=== PATIENT | male | born 1965 | race Caucasian/White ===

== ENCOUNTER 2017-06-02 10:50 | Observation (INO) | payer BC ==
[2017-06-02] MEDS ORDERED: HUMULIN R 100 UNIT/ML VIAL SC ONE (10:51)
[2017-06-02] MEDS ORDERED: 0.9 % SODIUM CHLORIDE 1,000 ML BAG IV ONE (11:25)
[2017-06-02 11:36] LABS: BASO % 0.5 % (0-6); EOS % 1.5 % (0-6); GRAN % 67.6 % (47-80); HEMATOCRIT 48.5 % (42.0-52.0); HEMOGLOBIN 16.8 gm/dl (14.0-18.0); LYMPH % 24.9 % (16-45); MEAN CORPUSCULAR HEMOGLOBIN 29.8 pg (27-33); MEAN CORPUSCULAR HGB CONC 34.6 g/dl (32-36); MEAN PLATELET VOLUME 12.5 fl (7.4-10.4); MONO % 5.5 % (0-9); PLATELET COUNT 241 K/uL (130-400); RED BLOOD COUNT 5.64 M/uL (4.40-5.70); RED CELL DISTRIBUTION WIDTH 13.4 % (11.5-14.5)
[2017-06-02 11:45] LABS: BLOOD UREA NITROGEN 20 mg/dL (6-20); CREATININE 0.8 mg/dL (0.7-1.2); EST GLOMERULAR FILTRATION RATE > 60 mL/min
[2017-06-02 11:48] LABS: GLUCOSE,RANDOM 432 mg/dL (74-109)
[2017-06-02 11:50] LABS: ACETONE,SERUM NEGATIVE (NEGATIVE)
[2017-06-02] MEDS ORDERED: HUMULIN R 100 UNIT/ML VIAL SQ ONE (12:18)
[2017-06-02] MEDS ORDERED: PROMETHAZINE HCL 12.5 MG in 0.9 % SODIUM CHLORIDE 100ML 100 ML IVPB ONE (12:29)
[2017-06-02 13:00] LABS: URINE APPEARANCE CLEAR; URINE BILIRUBIN NEGATIVE (NEGATIVE); URINE BLOOD NEGATIVE (NEGATIVE); URINE COLOR YELLOW; URINE KETONE 15 mg/dL (NEGATIVE); URINE LEUKOCYTE ESTERASE NEGATIVE (NEGATIVE); URINE NITRITE NEGATIVE (NEGATIVE); URINE PROTEIN NEGATIVE (NEGATIVE); URINE UROBILINOGEN 0.2 E.U./dL (0.20 - 1.00)
[2017-06-02 13:04] LABS: URINE GLUCOSE (UA) >=1000 mg/dL (NEGATIVE)
[2017-06-02] MEDS: 0.9 % SODIUM CHLORIDE 1000ML 1,000 ML IV PRN ×3 (14:01→22:31)
--- NOTE | 2017-06-02 14:10 | Emergency Department Record ---
History of Present Illness - General Chief complaint: Hypergylcemia Stated complaint: BLOOD SUGAR HIGH Time Seen by Provider: 06/02/17 11:24 Source: Patient Mode of Arrival: Ambulatory Limitations: No limitations - History of Present Illness Initial comments: pt has has polydipsia,polyurea and general weakness for last few weeks. he went to urgent care today and he was sent here because he had a bs over 400 MD Complaint: Generalized weakness, Lack of energy Onset/Timin -: Month(s) Location: Generalized - [place] Coma Scale Eye Response: (4) Open spontaneously Motor Response: (6) Obeys commands Verbal Response: (5) Oriented [place] Total: 15 - Related Data Home Medications Medication Instructions Recorded Confirmed Last Taken No Home Med [NO HOME MEDS] 06/02/17 06/02/17 Unknown Allergies Allergy/AdvReac Type Severity Reaction Status Date / Time No Known Drug Allergies Allergy Verified 06/02/17 11:07 Travel Screening - Travel/Exposure Within Last 30 Days Have you traveled within the last 30 days?: No - Travel/Exposure Within Last Year Have you traveled outside the [place] in the last year?: No - Additonal Travel Details Have you been exposed to anyone with a communicable illness?: No Review of Systems Reviewed: No additional complaints except as noted below Constitutional: Reports: As per HPI, Weakness. Denies: Chills, Fever, Malaise, Night sweats, Weight change Eyes: Reports: As per HPI. Denies: Eye discharge, Eye pain, Photophobia, Vision change ENT: Reports: As per HPI. Denies: Congestion, Dental pain, Ear pain, Epistaxis , Hearing loss, Throat pain Respiratory: Reports: As per HPI. Denies: Cough, Dyspnea, Hemoptysis, Stridor, Wheezes Cardiovascular: Reports: As per HPI. Denies: Arrhythmia, Chest pain, Dyspnea on exertion, Edema, Murmurs, Orthopnea, Palpitations, Paroxysmal nocturnal dyspnea, Rheumatic Fever, Syncope Endocrine: Reports: As per HPI, Fatigue, Polydipsia, Polyuria. Denies: Heat or cold intolerance Gastrointestinal: Reports: As per HPI. Denies: Abdominal pain, Constipation, Diarrhea, Hematemesis, Hematochezia, Melena, Nausea, Vomiting Genitourinary: Reports: As per HPI. Denies: Dysuria, Frequency, Hematuria, Incontinence, Retention, Testicular pain, Testicular mass, Urgency Musculoskeletal: Reports: As per HPI. Denies: Arthralgia, Back pain, Gout, Joint swelling, Myalgia, Neck pain Skin: Reports: As per HPI. Denies: Bruising, Change in color, Change in hair/ nails, Lesions, Pruritus, Rash Neurological: Reports: As per HPI. Denies: Abnormal gait, Confusion, Headache, Numbness, Paresthesias, Seizure, Tingling, Tremors, Vertigo, Weakness Psychiatric: Reports: As per HPI. Denies: Anxiety, Auditory hallucinations, Depression, Homicidal thoughts, Suicidal thoughts, Visual hallucinations Hematological/Lymphatic: Reports: As per HPI. Denies: Anemia, Blood Clots, Easy bleeding, Easy bruising, Swollen glands Past Medical History - SOCIAL HISTORY Smoking Status: Current every day smoker Alcohol Use: None Drug Use Detail:: Marijuana - RESPIRATORY Hx Respiratory Disorders: No - CARDIOVASCULAR Hx Cardio Disorders: Yes Hx Vascular Disease: Yes (high cholesterol) - NEURO Hx Neuro Disorders: No - GI Hx GI Disorders: No - Hx Genitourinary Disorders: No - ENDOCRINE Hx Endocrine Disorders: No - MUSCULOSKELETAL Hx Musculoskeletal Disorders: No - PSYCH Hx Psych Problems: No - HEMATOLOGY/ONCOLOGY Hx Hematology/Oncology Disorders: No Family Medical History Any Significant Family History?: Yes Hx Diabetes: Father Hx Heart Disease: Father Physical Exam - General General Appearance: Alert, Oriented x3, Cooperative, Mild distress - Head Head exam: Normal inspection - Eye Eye exam: Normal appearance, PERRL, EOMI Pupils: Normal accommodation - ENT ENT exam: Normal exam, Mucous membranes dry, Normal external ear exam, Normal orophraynx Ear exam: Normal external inspection. negative: External canal tenderness Nasal Exam: Normal inspection. negative: Discharge, Sinus tenderness Mouth exam: Normal external inspection, Tongue normal Teeth exam: Normal inspection. negative: Dental caries Throat exam: Normal inspection. negative: Tonsillar erythema, Tonsillar exudate - Neck Neck exam: Normal inspection, Full ROM. negative: Tenderness - Respiratory Respiratory exam: Normal lung sounds bilaterally. negative: Respiratory distress - Cardiovascular Cardiovascular Exam: Regular rate, Normal rhythm, Normal heart sounds - GI/Abdominal GI/Abdominal exam: Soft, Normal bowel sounds. negative: Tenderness - Rectal Rectal exam: Deferred - exam: Deferred - Extremities Extremities exam: Normal inspection, Full ROM, Normal capillary refill. negative: Tenderness - Back Back exam: Reports: Normal inspection, Full ROM. Denies: Muscle spasm, Rash noted, Tenderness - Neurological Neurological exam: Alert, CN II-XII intact, Normal gait, Oriented X3 - Psychiatric Psychiatric exam: Normal affect, Normal mood - Skin Skin exam: Dry, Intact, Normal color, Warm Course Vital Signs 06/02/17 06/02/17 06/02/17 11:09 11:16 13:18 Temperature 98.1 F Pulse Rate 86 Pulse Rate [ 78 Pulse Ox Probe] Respiratory 18 16 Rate Blood Pressure 128/92 Blood Pressure 130/85 [Right Arm] Pulse Ox 98 95 - Reevaluation(s) Reevaluation #1: 06/02/17 14:03 pt feeling better Medical Decision Making - Lab Data Result diagrams: 06/02/17 11:24 06/02/17 11:17 Lab Results 06/02/17 06/02/17 06/02/17 Range/Units 11:17 11:17 11:24 WBC 13.0 H (4.2-12.2) K/uL RBC 5.64 (4.40-5.70) M/uL Hgb 16.8 (14.0-18.0) gm/dl Hct 48.5 (42.0-52.0) % MCV 86.0 (81-97) fl MCH 29.8 (27-33) pg MCHC 34.6 (32-36) g/dl RDW 13.4 (11.5-14.5) % Plt Count 241 (130-400) K/uL MPV 12.5 H (7.4-10.4) fl Gran % 67.6 (47-80) % Lymphocytes % 24.9 (16-45) % Monocytes % 5.5 (0-9) % Eosinophils % 1.5 (0-6) % Basophils % 0.5 (0-6) % VBG pH 7.37 (7.33-7.43) Sodium 131 L (136-145) mmol/L Potassium 4.2 (3.4-4.5) mmol/L Chloride 90 L (98-107) mmol/L Carbon Dioxide 25.0 (22-29) mmol/L Anion Gap 16.0 (7-16) BUN 20 (6-20) mg/dL Creatinine 0.8 (0.7-1.2) mg/dL Estimated GFR > 60 mL/min POC Glucose (70-110) mg/dL Random Glucose 432 H (74-109) mg/dL Lactic Acid 1.8 (0.5-2.2) mmol/L Calcium 10.3 H (8.6-10.0) mg/dL Urine Color Urine Appearance Urine pH (5.0-8.0) Ur Specific [place] (1.002-1.030) Urine Protein (NEGATIVE) Urine Glucose (UA) (NEGATIVE) Urine Ketones (NEGATIVE) Urine Blood (NEGATIVE) Urine Nitrite (NEGATIVE) Urine Bilirubin (NEGATIVE) Urine Urobilinogen (0.20 - 1.00) E.U./dL Ur Leukocyte Esterase (NEGATIVE) Acetone, Qual Negative (NEGATIVE) 06/02/17 06/02/17 Range/Units 12:50 13:36 WBC (4.2-12.2) K/uL RBC (4.40-5.70) M/uL Hgb (14.0-18.0) gm/dl Hct (42.0-52.0) % MCV (81-97) fl MCH (27-33) pg MCHC (32-36) g/dl RDW (11.5-14.5) % Plt Count (130-400) K/uL MPV (7.4-10.4) fl Gran % (47-80) % Lymphocytes % (16-45) % Monocytes % (0-9) % Eosinophils % (0-6) % Basophils % (0-6) % VBG pH (7.33-7.43) Sodium (136-145) mmol/L Potassium (3.4-4.5) mmol/L Chloride (98-107) mmol/L Carbon Dioxide (22-29) mmol/L Anion Gap (7-16) BUN (6-20) mg/dL Creatinine (0.7-1.2) mg/dL Estimated GFR mL/min POC Glucose 319 H (70-110) mg/dL Random Glucose (74-109) mg/dL Lactic Acid (0.5-2.2) mmol/L Calcium (8.6-10.0) mg/dL Urine Color Yellow Urine Appearance Clear Urine pH 5.5 (5.0-8.0) Ur Specific [place] 1.015 (1.002-1.030) Urine Protein Negative (NEGATIVE) Urine Glucose (UA) >=1000 mg/dl H (NEGATIVE) Urine Ketones 15 mg/dl H (NEGATIVE) Urine Blood Negative (NEGATIVE) Urine Nitrite Negative (NEGATIVE) Urine Bilirubin Negative (NEGATIVE) Urine Urobilinogen 0.2 (0.20 - 1.00) E.U./dL Ur Leukocyte Esterase Negative (NEGATIVE) Acetone, Qual (NEGATIVE) Disposition Disposition: Admit Clinical Impression: New onset type 2 diabetes mellitus Disposition: Still a Patient at [facility] Decision to Admit: Admit from ER Decision to Admit Date: 06/02/17 Decision to Admit Time: 14:04 Quality - Quality Measures Quality Measures: N/A - Blood Pressure Screening Does Patient Have Any of the Following: No Blood Pressure Classification: Hypertensive Reading Systolic Measurement: 128 Diastolic Measurement: 92 Screening for High Blood Pressure: < Pre-Hypertensive BP, F/U Documented > [ [id number]] Pre-Hypertensive Follow-up Interventions: Follow-up with rescreen every year.
[2017-06-02] MEDS ORDERED: HUMULIN R 100 UNIT/ML VIAL SQ PRN (14:56)
[2017-06-02] MEDS ORDERED: ACETAMINOPHEN 500 MG TABLET PO PRN (14:56)
--- NOTE | 2017-06-02 15:37 | History & Physical ---
History of Present Illness - Date of Service Date of Service for History & Physical: 06/03/17 - History of Present Illness Admitting Diagnosis: new onset diabetes History of Present Illness: Mr. Merida is a 51 year-old male who presented to the ED on after experiencing worsening polydipsia, polyuria, and generalized weakness for 2 weeks. He went to an urgent care first and was sent directly to ED due to elevated blood glucose. He has not been seen by a PCP in over 10 years. His only known history is hyperlipidemia and current every day smoker- 52.5 pk/ yrs. He states that he has not consumed alcohol in over 7 years and he does admit to occasional recreational marijuana use. He is single and he lives at home with his twin brother. When he arrived to the ED, his blood glucose was 432. His UA was positive for glucose >1000mg/dl and ketones 1.5mg/dl. He was treated with sliding scale sc novolog insulin. Based on his level of hyperglycemia and new diabetes diagnosis, pt. was admitted for management of hyperglycemia with insulin and laboratory monitoring. 06/02/17 1530: Pt. is sitting up in bed and eating. He states that he feels much better overall. He denies headache, vision change, recent weight loss. He states that over the last couple of weeks, he has felt like he was constantly thirsty. He states that he does not particularly pay attention to his diet and he does drink soda regularly. He also states that he is interested in quitting smoking. He states that his diagnosis of diabetes is a "wake up call" and that he is motivated to make lifestyle changes. He states that he has an appointment to establish care with a PCP, Dr. Zamarripa, in mid-Jun. Plan to continue sliding scale reg insulin, monitor accuchecks and vital signs, provide nutritional support and education. Travel Screening - Travel/Exposure Within Last 30 Days Have you traveled within the last 30 days?: No - Travel/Exposure Within Last Year Have you traveled outside the [place] in the last year?: No - Additonal Travel Details Have you been exposed to anyone with a communicable illness?: No - Travel Symptoms Symptom Screening: None Review of Systems Constitutional: Reports: As per HPI, Weakness. Denies: Chills, Fever, Malaise, Night sweats, Weight change Eyes: Reports: As per HPI. Denies: Eye discharge, Eye pain, Photophobia, Vision change ENT: Reports: As per HPI. Denies: Congestion, Dental pain, Ear pain, Epistaxis , Hearing loss, Throat pain Respiratory: Reports: As per HPI. Denies: Cough, Dyspnea, Hemoptysis, Stridor, Wheezes Cardiovascular: Reports: As per HPI. Denies: Arrhythmia, Chest pain, Dyspnea on exertion, Edema, Murmurs, Orthopnea, Palpitations, Paroxysmal nocturnal dyspnea, Rheumatic Fever, Syncope Endocrine: Reports: As per HPI, Fatigue, Polydipsia, Polyuria. Denies: Heat or cold intolerance Gastrointestinal: Reports: As per HPI. Denies: Abdominal pain, Constipation, Diarrhea, Hematemesis, Hematochezia, Melena, Nausea, Vomiting Genitourinary: Reports: As per HPI. Denies: Dysuria, Frequency, Hematuria, Incontinence, Retention, Testicular pain, Testicular mass, Urgency Musculoskeletal: Reports: As per HPI. Denies: Arthralgia, Back pain, Gout, Joint swelling, Myalgia, Neck pain Skin: Reports: As per HPI. Denies: Bruising, Change in color, Change in hair/ nails, Lesions, Pruritus, Rash Neurological: Reports: As per HPI. Denies: Abnormal gait, Confusion, Headache, Numbness, Paresthesias, Seizure, Tingling, Tremors, Vertigo, Weakness Psychiatric: Reports: As per HPI. Denies: Anxiety, Auditory hallucinations, Depression, Homicidal thoughts, Suicidal thoughts, Visual hallucinations Hematological/Lymphatic: Reports: As per HPI. Denies: Anemia, Blood Clots, Easy bleeding, Easy bruising, Swollen glands Past Medical History - SOCIAL HISTORY Smoking Status: Current every day smoker (1.5ppd) Alcohol Use: Rare Drug Use: Occasional Drug Use Detail:: Marijuana - RESPIRATORY Hx Respiratory Disorders: No - CARDIOVASCULAR Hx Cardio Disorders: Yes Hx Vascular Disease: Yes (high cholesterol) - NEURO Hx Neuro Disorders: No - GI Hx GI Disorders: No - Hx Genitourinary Disorders: No - ENDOCRINE Hx Endocrine Disorders: Yes Hx Diabetes: Yes (new onset today) - MUSCULOSKELETAL Hx Musculoskeletal Disorders: No - PSYCH Hx Psych Problems: No - HEMATOLOGY/ONCOLOGY Hx Hematology/Oncology Disorders: No Family Medical History Any Significant Family History?: Yes Hx Diabetes: Father Hx Heart Disease: Father H&P Meds/Allergies - Allergies Allergies: Allergies Allergy/AdvReac Type Severity Reaction Status Date / Time No Known Drug Allergies Allergy Verified 06/02/17 11:07 - Home Medications Home Medications Medication Instructions Recorded Confirmed Last Taken No Home Med [NO HOME MEDS] 06/02/17 06/02/17 Unknown - Active Medications Active Medications: Current Medications Acetaminophen (Tylenol 500mg Tab) 1,000 mg PO Q6H PRN PRN Reason: PAIN/TEMP Sodium Chloride () 1,000 mls @ 200 mls/hr IV .Q5H PRN PRN Reason: LARGE VOLUME IV Last Admin: 06/02/17 14:01 Dose: 200 mls/hr Insulin Human Regular (Humulin R) 1 unit SQ Q4H PRN PRN Reason: Hyperglycemica Physical Exam - General General Appearance: Alert, Oriented x3, Cooperative Limitations: No limitations - Head Head exam: Normal inspection - Eye Eye exam: Normal appearance, PERRL, EOMI Pupils: Normal accommodation - ENT ENT exam: Normal exam, Mucous membranes dry, Normal external ear exam, Normal orophraynx Ear exam: Normal external inspection. negative: External canal tenderness Nasal Exam: Normal inspection. negative: Discharge, Sinus tenderness Mouth exam: Normal external inspection, Tongue normal Teeth exam: Normal inspection. negative: Dental caries Throat exam: Normal inspection. negative: Tonsillar erythema, Tonsillar exudate - Neck Neck exam: Normal inspection, Full ROM. negative: Tenderness - Respiratory Respiratory exam: Normal lung sounds bilaterally. negative: Respiratory distress - Cardiovascular Cardiovascular Exam: Regular rate, Normal rhythm, Normal heart sounds - GI/Abdominal GI/Abdominal exam: Soft, Normal bowel sounds. negative: Tenderness - Rectal Rectal exam: Deferred - exam: Deferred - Extremities Extremities exam: Normal inspection, Full ROM, Normal capillary refill. negative: Tenderness - Back Back exam: Reports: Normal inspection, Full ROM. Denies: Muscle spasm, Rash noted, Tenderness - Neurological Neurological exam: Alert, CN II-XII intact, Normal gait, Oriented X3 - Psychiatric Psychiatric exam: Normal affect, Normal mood - Skin Skin exam: Dry, Intact, Normal color, Warm Results - Labs Result Diagrams: 06/02/17 11:24 06/02/17 11:17 VTE H&P Assessment - Risk for VTE Risk for VTE: No Risk Level: Very Low Risk Assessment Date: 06/02/17 (Pt's mobility not impaired) Risk Assessment Time: 16:00 VTE Orders Placed or Will Be Placed: No VTE Reason for No Prophylaxis: Not Indicated (Pt's mobility not impaired) Plan - Inpatient Certification Inpatient Certification: Admit to inpatient care: Based on my medical assessment, after consideration of patient's risk factors (age, co-morbidities and patient presenting symptoms and acuity), I expect that this patient will remain in the hospital greater than or equal to two midnights and that the services needed warrant inpatient care because: Patient Risk Factors: [] Estimated length of stay: [] The patient may reasonably be expected to be discharged or transferred to a hospital within 96 hours after admission to [facility]. Services needed: [sliding scale insulin, consult dietary, diabetes education, laboratory monitoring] Post hospital care (if known): [] I certify that my determination is in accordance with my understanding of Medicare requirements for reasonable and necessary inpatient services. 06/02/17 15:34 - Detailed Diagnosis and Plan (1) New onset type 2 diabetes mellitus Current Visit: Yes Status: Acute Base Code: E11.9 - TYPE 2 DIABETES MELLITUS WITHOUT COMPLICATIONS Comment: 06/02/17: Pt arrived to ED with blood glucose of 432 and urine positive for glucose and ketones. Vital signs stable. Plan to continue to monitor accucheck and sliding scale insulin QID ac/hs. Initiate metformin 500mg bid with meals. Labs ordered for 06/03- cbc, cmp, microalbumin, a1c, and lipid profile. Will consider initiating RANCHO for renal protection and statin based on vital signs and lab results. (2) Tobacco use disorder Current Visit: Yes Status: Acute Base Code: F17.200 - NICOTINE DEPENDENCE, UNSPECIFIED, UNCOMPLICATED Comment: 06/02/17: Pt. is current every day smoker - 1.5 packs per day for 35 years (52.5 pk/yrs). Pt. expresses interest in smoking cessation. Will consider nicotine patch based on pt. assessment on and if vs remain stable. (3) Full code status Current Visit: Yes Status: Acute Base Code: Z78.9 - OTHER SPECIFIED HEALTH STATUS Comment: 06/02/17: Pt. is full code status
[2017-06-02] MEDS: NOVOLOG FLEXPEN (INSULIN ASPART) 100 UNITS/ML SQ SCH ×2 (17:41→22:20)
[2017-06-02] MEDS: METFORMIN 500 MG TABLET PO SCH (17:42)
[2017-06-03 06:51] LABS: HEMATOCRIT 42.4 % (42.0-52.0); HEMOGLOBIN 14.6 gm/dl (14.0-18.0); MEAN CELL VOLUME 87.6 fl (81-97); MEAN CORPUSCULAR HEMOGLOBIN 30.2 pg (27-33); MEAN CORPUSCULAR HGB CONC 34.4 g/dl (32-36); MEAN PLATELET VOLUME 12.3 fl (7.4-10.4); PLATELET COUNT 203 K/uL (130-400); RED BLOOD COUNT 4.84 M/uL (4.40-5.70); RED CELL DISTRIBUTION WIDTH 13.5 % (11.5-14.5)
[2017-06-03 07:08] LABS: PLATELET ESTIMATE NORMAL (NORMAL)
[2017-06-03 07:12] LABS: ALB/GLOB RATIO 1.1 (1.1-1.8); ALBUMIN 3.5 g/dL (4.0-5.0); ALKALINE PHOSPHATASE 107 U/L (40-129); AST/SGOT 19 U/L (10.0-50.0); BLOOD UREA NITROGEN 10 mg/dL (6-20); CHOLESTEROL 353 mg/dL (<200); CREATININE 0.5 mg/dL (0.7-1.2); EST GLOMERULAR FILTRATION RATE > 60 mL/min; GLUCOSE,RANDOM 282 mg/dL (74-109); HDL CHOLESTEROL 15 mg/dL (40-60); TOTAL PROTEIN 6.6 g/dL (6.6-8.7)
[2017-06-03 07:25] LABS: ALT/SGPT < 5 U/L (<41)
[2017-06-03 07:37] LABS: TRIGLYCERIDES 2251 mg/dL (<150)
[2017-06-03] MEDS: METFORMIN 500 MG TABLET PO SCH (08:36)
[2017-06-03] MEDS: NOVOLOG FLEXPEN (INSULIN ASPART) 100 UNITS/ML SQ SCH ×2 (08:37→11:59)
[2017-06-03] MEDS: 0.9 % SODIUM CHLORIDE 1000ML 1,000 ML IV PRN (08:40)
[2017-06-03] MEDS ORDERED: PNEUM 23-VAL ADULT IM ONE (09:46)
[2017-06-03] MEDS ORDERED: LISINOPRIL 5 MG TABLET PO SCH (10:00)
[2017-06-03] MEDS ORDERED: ASPIRIN 81 MG TABEC PO SCH (10:00)
--- NOTE | 2017-06-03 15:45 | Discharge Summary ---
Providers Discharge Summary Date: 06/03/17 Date of admission: 06/02/17 14:44 Expected Date of Discharge: 06/03/17 Attending physician: Abdiaziz Lehman Primary care physician: Dr. Zamarripa- f/u on Wednesday 06/07 at 2pm Physical Exam - Vital Signs Vital Signs: Vital Signs - Last 24 Hrs Temp Pulse Resp BP Pulse Ox 06/03/17 06:00 97.4 F L 70 18 132/87 95 06/02/17 22:00 97.7 F 75 18 121/68 95 06/02/17 15:35 16 - General General Appearance: Alert, Oriented x3, Cooperative Limitations: No limitations - Head Head exam: Normal inspection - Eye Eye exam: Normal appearance, PERRL, EOMI Pupils: Normal accommodation - ENT ENT exam: Normal exam, Mucous membranes dry, Normal external ear exam, Normal orophraynx Ear exam: Normal external inspection. negative: External canal tenderness Nasal Exam: Normal inspection. negative: Discharge, Sinus tenderness Mouth exam: Normal external inspection, Tongue normal Teeth exam: Normal inspection. negative: Dental caries Throat exam: Normal inspection. negative: Tonsillar erythema, Tonsillar exudate - Neck Neck exam: Normal inspection, Full ROM. negative: Tenderness - Respiratory Respiratory exam: Normal lung sounds bilaterally. negative: Respiratory distress - Cardiovascular Cardiovascular Exam: Regular rate, Normal rhythm, Normal heart sounds - GI/Abdominal GI/Abdominal exam: Soft, Normal bowel sounds. negative: Tenderness - Rectal Rectal exam: Deferred - exam: Deferred - Extremities Extremities exam: Normal inspection, Full ROM, Normal capillary refill. negative: Tenderness - Back Back exam: Reports: Normal inspection, Full ROM. Denies: Muscle spasm, Rash noted, Tenderness - Neurological Neurological exam: Alert, CN II-XII intact, Normal gait, Oriented X3 - Psychiatric Psychiatric exam: Normal affect, Normal mood - Skin Skin exam: Dry, Intact, Normal color, Warm Hospitalization - Hospitalization Admission Diagnosis: new onset diabetes - Problem List/Discharge Diagnosis (1) New onset type 2 diabetes mellitus Status: Acute Base Code: E11.9 - TYPE 2 DIABETES MELLITUS WITHOUT COMPLICATIONS Comment: 06/03/17: Blood glucose 272. Vital signs remain stable. Plan to change sliding scale to long-acting insulin to prepare for discharge. Continue 500mg bid with meals. A1C 11.5, micoralbumin 44.2, total cholesterol 353, HDL 15, LDL 62, triglycerides 2251. Start lisinopril 5mg dialy , lipitor 20mg daily, aspirin 81mg daily. Provided education to pt. regarding lab results and new medications. (2) Hypertriglyceridemia Status: Acute Base Code: E78.1 - PURE HYPERGLYCERIDEMIA Comment: 06/03/17: Total cholesterol 353, LDL 62, HDL 15 and triglycerides 2251. Start lipitor 20mg daily. Education provided to pt. regarding purpose of medication, mechanism of action, and potential side effects. Also discussed lifestyle and nutritional modifications. (3) Tobacco use disorder Status: Acute Base Code: F17.200 - NICOTINE DEPENDENCE, UNSPECIFIED, UNCOMPLICATED Comment: 06/03/17: Pt. is current every day smoker- 1.5 packs per day for 35 years (52.5 pk/yrs). Pt. has not smoked since prior to admission and he states that he feels he is ready to quit smoking, denies need for nicotin patch at this time. (4) Full code status Status: Acute Base Code: Z78.9 - OTHER SPECIFIED HEALTH STATUS Comment: 06/03: Pt. remains full code status - Hospitalization Course Disposition: Home, Self-Care Hospital Course: Mr. Merida is a 51 year-old male who presented to the ED on after experiencing worsening polydipsia, polyuria, and generalized weakness for 2 weeks. He went to an urgent care first and was sent directly to ED due to elevated blood glucose. He has not been seen by a PCP in over 10 years. His only known history is hyperlipidemia and current every day smoker- 52.5 pk/ yrs. He states that he has not consumed alcohol in over 7 years and he does admit to occasional recreational marijuana use. He is single and he lives at home with his twin brother. When he arrived to the ED, his blood glucose was 432. His UA was positive for glucose >1000mg/dl and ketones 1.5mg/dl. He was treated with sliding scale sc novolog insulin. Based on his level of hyperglycemia and new diabetes diagnosis, pt. was admitted for management of hyperglycemia with insulin and laboratory monitoring. 06/02/17 1530: Pt. is sitting up in bed and eating. He states that he feels much better overall. He denies headache, vision change, recent weight loss. He states that over the last couple of weeks, he has felt like he was constantly thirsty. He states that he does not particularly pay attention to his diet and he does drink soda regularly. He also states that he is interested in quitting smoking. He states that his diagnosis of diabetes is a "wake up call" and that he is motivated to make lifestyle changes. He states that he has an appointment to establish care with a PCP, Dr. Zamarripa, in mid-Jun. Plan to continue sliding scale reg insulin, monitor accuchecks and vital signs, provide nutritional support and education. 06/03/17: Pt. is doing well today. He states that he is motivated and ready to make lifestyle modifications and get control of his diabetes. He has met with dietary for nutritional education. VS remain stable. Accuchecks remain above 270, requiring 8-10 units reg unsulin with sliding scale. Plan to discontinue sliding scale and implement long-acting levemir 10units every night in addition to metformin. Plan to discharge home today. Pt. will be instructed to continue metformin 500mg bid with meals, lipitor 20mg at night, aspirin 81mg daily, lisinopril 5mg daily, and levemir 10untis sc nightly. Pt. will be provided with prescription for glucometer, test strips, lancets, alcohol pads, and levemir insulin needles. Pt. instructed to check blood glucose every morning fasting and after at least one large meal daily- and to keep log of his results to present to pcp. Education provided to pt. regarding signs of hyper and hypo glycemia and when to seek medical treatment. Pt. has f/u with pcp on Wednesday 06/07. Abnormal Labs: Abnormal Lab Results 06/02/17 06/03/17 06/03/17 Range/Units 17:00 06:20 06:20 MPV 12.3 H (7.4-10.4) fl Sodium 134 L (136-145) mmol/L Creatinine 0.5 L (0.7-1.2) mg/dL POC Glucose 310 H (70-110) mg/dL Random Glucose 282 H (74-109) mg/dL Hemoglobin A1c (4.0-6.00) % Albumin 3.5 L (4.0-5.0) g/dL Triglycerides 2251 H (<150) mg/dL Cholesterol 353 H (<200) mg/dL HDL Cholesterol 15 L (40-60) mg/dL 06/03/17 06/03/17 Range/Units 06:20 11:30 MPV (7.4-10.4) fl Sodium (136-145) mmol/L Creatinine (0.7-1.2) mg/dL POC Glucose 272 H (70-110) mg/dL Random Glucose (74-109) mg/dL Hemoglobin A1c 11.50 H (4.0-6.00) % Albumin (4.0-5.0) g/dL Triglycerides (<150) mg/dL Cholesterol (<200) mg/dL HDL Cholesterol (40-60) mg/dL Condition at Discharge: (2) Stable VTE Discharge VTE Reason For No Overlap Therapy: Not Indicated Discharge Medications - Discharge Medications Prescriptions: Atorvastatin Calcium 20 mg PO QHS 30 Days #30 tab Insulin Detemir [Levemir Flextouch] 10 unit SQ QHS 30 Days #1 syringe Lisinopril [Zestril] 5 mg PO DAILY 30 Days #30 tablet Metformin HCl [Glucophage Ir] 500 mg PO BIDWM 30 Days #60 tablet Home Medications: Ambulatory Orders Aspirin Enteric-Coated [Ecotrin (EC)] 81 mg PO DAILY tabec 06/03/17 [Last Taken Unknown] Atorvastatin Calcium 20 mg PO QHS 30 Days #30 tab 06/03/17 [Last Taken Unknown] Insulin Detemir [Levemir Flextouch] 10 unit SQ QHS 30 Days #1 syringe 06/03/17 [ Last Taken Unknown] Lisinopril [Zestril] 5 mg PO DAILY 30 Days #30 tablet 06/03/17 [Last Taken Unknown] Metformin HCl [Glucophage Ir] 500 mg PO BIDWM 30 Days #60 tablet 06/03/17 [Last Taken Unknown] Discharge Plan - Discharge Instructions Activity at Discharge: Resume Usual Activities As Tolerated Diet at Discharge: Diabetic Diet Instructions: How to Check Your Blood Sugar (DC), Type 2 Diabetes in Adults (DC ) Quality Measures - Quality Measures Quality Measures: Documentation of Current Medications in Medical Record, Screening for High Blood Pressure and F/U Documented - Current Medications Quality Measure: Measure #130: Documentation of Current Medications Documentation of Current Medications: <Current Medications Documented/Reviewed> [[id number]] - Blood Pressure Screening Quality Measure: Screening for High Blood Pressure and Follow-Up Documented Does Patient Have Any of the Following: No Blood Pressure Classification: Hypertensive Reading Systolic Measurement: 128 Diastolic Measurement: 92 Screening for High Blood Pressure: < Pre-Hypertensive BP, F/U Documented > [ [id number]] Pre-Hypertensive Follow-up Interventions: Lifestyle modifications., Referral to alternative/primary care provider. Lifestyle Modification: Weight Reduction, Increased Physical Activity - Elder Abuse Suspicion Index EASI Reference Information: Niki DUNBAR, Bozena C, Matthew D, Constanza Quiñonez.Development and validation of a tool to assist physicians identification of elder abuse: The Elder Abuse Suspicion Index (EASI ). Journal of Elder Abuse and Neglect, 2008; 20 (3): 276-300.
[2017-06-03] MEDS ORDERED: NOVOLOG FLEXPEN (INSULIN ASPART) 100 UNITS/ML SQ SCH (17:15)
[2017-06-03] MEDS ORDERED: LEVEMIR FLEXTOUCH 100 UNIT/ML INSULIN PEN SQ SCH (22:00)
[2017-06-03] MEDS ORDERED: ATORVASTATIN 20 MG TABLET PO SCH (22:00)
== END 2017-06-03 16:46 | disposition home or self-care (01) ==
LOC: ER 10:50 → INTOOBSV 14:44 → MEDSURG 14:44
PROVIDERS: ADMIT Internal Medicine; ATTEND Internal Medicine
DX: E11.65 Type 2 diabetes mellitus with hyperglycemia (principal); E78.5 Hyperlipidemia, unspecified; Z72.0 Tobacco use; Z23 Encounter for immunization
CPT/HCPCS: 99285 ×2; 96372; 83605; 82800; 85025; 82150; 80048; 80053; 36416 ×2; 82009; 83036; 82948 ×2; 81003; 80061; 85027; 90732; G0378 ×2; J1815 ×3; 99217; 99220; J7030